=== PATIENT | female | born 1940 | race Caucasian/White ===

== ENCOUNTER 2019-12-08 10:45 | Inpatient (IN) | payer OTHER ==
[~2019-12-08] VITALS: Ht 154.9 cm; Wt 43.8 kg
[2019-12-08] MEDS ORDERED: ACETAMINOPHEN 500 MG TABLET PO ONE (11:30)
[2019-12-08 13:56] LABS: BASOPHILS % (AUTO) 0.5 % (0.0-2.0); EOSINOPHILS % (AUTO) 0.9 % (1.0-6.0); HEMATOCRIT 32.6 % (36-46); HEMOGLOBIN 10.5 g/dL (12.0-16.0); LYMPHOCYTES # (AUTO) 0.5 K/uL (1.0-4.8); MEAN CORPUSCULAR HEMOGLOBIN 29.8 pg (26.0-34.0); MEAN CORPUSCULAR HGB CONC 32.2 G/dL (31.0-37.0); MEAN CORPUSCULAR VOLUME 92 fL (80-100); MONOCYTES # (AUTO) 0.5 K/uL (0.1-1.0); MONOCYTES % (AUTO) 12.6 % (2.0-9.0); PLATELET COUNT (AUTO) 127 K/uL (150-450); RED BLOOD CELL COUNT(AUTO) 3.53 MIL/uL (4.00-5.20); RED CELL DISTRIBUTION WIDTH 17.6 % (11.5-14.5)
[2019-12-08 14:03] LABS: CALCIUM, TOTAL 7.5 mg/dL (8.8-10.5); CREATININE 5.48 mg/dL (0.60-1.30); POTASSIUM 5.6 mmol/L (3.5-5.1)
[2019-12-08 14:09] LABS: ALBUMIN 2.7 g/dL (3.4-5.0); BILIRUBIN,TOTAL 0.6 mg/dL (0.1-1.0); PHOSPHORUS 4.7 mg/dL (2.5-4.9)
[2019-12-08] MEDS ORDERED: ONDANSETRON HCL 4 MG/2 ML VIAL IVP PRN ×2 (14:15→15:00)
[2019-12-08] MEDS ORDERED: 0.9% SODIUM CHLORIDE 10 ML SYRINGE IVP PRN ×2 (14:15→15:00)
[2019-12-08] MEDS ORDERED: ACETAMINOPHEN 325 MG TABLET PO PRN ×2 (14:15→15:00)
[2019-12-08] MEDS ORDERED: DEXTROSE 50%-WATER 25 GM/50 ML SYRINGE IVP PRN (14:45)
[2019-12-08] MEDS ORDERED: BISACODYL 10 MG RECTAL RECTAL SUPPOSITORY PR PRN (15:00)
[2019-12-08] MEDS ORDERED: MAGNESIUM HYDROXIDE SUSPENSION 30 ML UDCUP PO PRN (15:00)
[2019-12-08] MEDS ORDERED: IPRATROPIUM BROMIDE 0.5 MG/2.5 ML NEB SOLUTION NEB PRN (15:00)
[2019-12-08] MEDS ORDERED: ALBUTEROL SULFATE 2.5 MG/0.5 ML NEB SOLUTION NEB PRN (15:00)
[2019-12-08] MEDS ORDERED: DOCUSATE SODIUM 100 MG CAPSULE PO PRN (15:00)
[2019-12-08] MEDS: PANTOPRAZOLE SODIUM 40 MG DR TABLET PO SCH (15:23)
[2019-12-08] MEDS: MORPHINE SULFATE 2 MG/ML SYRINGE IVP PRN ×2 (15:23→19:49)
[2019-12-08 18:24] VITALS: BP 124/56
[2019-12-08 20:00] VITALS: BP 108/56
[2019-12-08] MEDS: HEPARIN SODIUM,PORCINE 5,000 UNITS/ML VIAL SQ SCH (20:38)
[2019-12-09] VITALS (11 sets, daily range): BP systolic 135–209; BP diastolic 65–88
[2019-12-09] MEDS: INSULIN LISPRO 100 UNITS/ML SQ PRN ×3 (01:35→11:52)
[2019-12-09 01:38] LABS: GLUCOMETER DEV NAME(LOC) 6N.2; GLUCOSE,POINT OF CARE 197 MG/DL (70-110)
[2019-12-09 06:11] LABS: GLUCOMETER DEV NAME(LOC) 6S.1; GLUCOSE,POINT OF CARE 150 MG/DL (70-110)
[2019-12-09 07:29] LABS: BASOPHILS % (AUTO) 0.2 % (0.0-2.0); HEMATOCRIT 32.7 % (36-46); HEMOGLOBIN 10.6 g/dL (12.0-16.0); LYMPHOCYTES # (AUTO) 0.4 K/uL (1.0-4.8); LYMPHOCYTES % (AUTO) 12.2 % (22.0-44.0); MEAN CORPUSCULAR HEMOGLOBIN 30.1 pg (26.0-34.0); MEAN CORPUSCULAR HGB CONC 32.4 G/dL (31.0-37.0); MEAN CORPUSCULAR VOLUME 93 fL (80-100); MONOCYTES # (AUTO) 0.3 K/uL (0.1-1.0); MONOCYTES % (AUTO) 9.1 % (2.0-9.0); NEUTROPHILS # (AUTO) 2.5 K/uL (1.8-7.7); NEUTROPHILS % (AUTO) 77.5 % (40.0-70.0); PLATELET COUNT (AUTO) 135 K/uL (150-450); RED BLOOD CELL COUNT(AUTO) 3.52 MIL/uL (4.00-5.20); RED CELL DISTRIBUTION WIDTH 17.7 % (11.5-14.5)
[2019-12-09 07:46] LABS: ALBUMIN 2.6 g/dL (3.4-5.0); BILIRUBIN,TOTAL 0.6 mg/dL (0.1-1.0); CALCIUM, TOTAL 7.3 mg/dL (8.8-10.5); CREATININE 5.94 mg/dL (0.60-1.30); POTASSIUM 5.3 mmol/L (3.5-5.1); TOTAL PROTEIN, SERUM 6.8 g/dL (6.4-8.2)
[2019-12-09] MEDS: MORPHINE SULFATE 2 MG/ML SYRINGE IVP PRN ×3 (08:31→22:05)
[2019-12-09] MEDS: HEPARIN SODIUM,PORCINE 5,000 UNITS/ML VIAL SQ SCH ×2 (08:33→20:31)
[2019-12-09] MEDS: PANTOPRAZOLE SODIUM 40 MG DR TABLET PO SCH (08:33)
[2019-12-09] MEDS: TraMADol HCL 50 MG TABLET PO PRN (12:28)
[2019-12-09] MEDS: CALCITRIOL 0.25 MCG CAPSULE PO SCH (15:36)
[2019-12-09] MEDS: METOPROLOL TARTRATE 50 MG TABLET PO SCH ×2 (15:37→20:24)
[2019-12-09] MEDS ORDERED: NIFEdipine 30 MG ER TABLET PO SCH (17:45)
[2019-12-09] MEDS: CALCIUM ACETATE 667 MG CAPSULE PO SCH (18:08)
[2019-12-09] MEDS: NIFEdipine 90 MG ER TABLET PO SCH (18:08)
[2019-12-09 18:28] LABS: GLUCOMETER DEV NAME(LOC) 6N.2; GLUCOSE,POINT OF CARE 162 MG/DL (70-110)
[2019-12-09 18:29] LABS: GLUCOMETER DEV NAME(LOC) 6N.2; GLUCOSE,POINT OF CARE 131 MG/DL (70-110)
[2019-12-09] MEDS: HydrALAZINE HCL 20 MG/ML VIAL IVP PRN (20:24)
[2019-12-09 22:22] LABS: GLUCOMETER DEV NAME(LOC) 5S.1; GLUCOSE,POINT OF CARE 164 MG/DL (70-110)
[2019-12-10 04:25] VITALS: BP 154/68
[2019-12-10] MEDS: INSULIN LISPRO 100 UNITS/ML SQ PRN (06:20)
[2019-12-10 07:19] VITALS: BP 144/62
[2019-12-10 07:32] LABS: BASOPHILS % (AUTO) 0.3 % (0.0-2.0); EOSINOPHILS % (AUTO) 1.3 % (1.0-6.0); HEMATOCRIT 33.8 % (36-46); HEMOGLOBIN 10.7 g/dL (12.0-16.0); LYMPHOCYTES # (AUTO) 0.6 K/uL (1.0-4.8); MEAN CORPUSCULAR HEMOGLOBIN 29.4 pg (26.0-34.0); MEAN CORPUSCULAR HGB CONC 31.6 G/dL (31.0-37.0); MEAN CORPUSCULAR VOLUME 93 fL (80-100); MONOCYTES # (AUTO) 0.4 K/uL (0.1-1.0); MONOCYTES % (AUTO) 11.8 % (2.0-9.0); NEUTROPHILS # (AUTO) 2.2 K/uL (1.8-7.7); NEUTROPHILS % (AUTO) 68.6 % (40.0-70.0); PLATELET COUNT (AUTO) 150 K/uL (150-450); RED BLOOD CELL COUNT(AUTO) 3.63 MIL/uL (4.00-5.20); RED CELL DISTRIBUTION WIDTH 17.6 % (11.5-14.5)
[2019-12-10 07:36] LABS: CALCIUM, TOTAL 7.3 mg/dL (8.8-10.5); CREATININE 6.57 mg/dL (0.60-1.30)
[2019-12-10 07:39] LABS: POTASSIUM 6.3 mmol/L (3.5-5.1)
[2019-12-10] MEDS: CALCIUM ACETATE 667 MG CAPSULE PO SCH ×4 (08:00→18:12)
[2019-12-10] MEDS ORDERED: CALCIUM GLUCONATE 100 MG/ML 10 ML IVP ONE (08:00)
[2019-12-10] MEDS ORDERED: NIFEdipine 90 MG ER TABLET PO SCH (09:00)
[2019-12-10] MEDS: NIFEdipine 90 MG ER TABLET PO SCH (09:00)
[2019-12-10] MEDS: HEPARIN SODIUM,PORCINE 5,000 UNITS/ML VIAL SQ SCH ×2 (09:00→20:05)
[2019-12-10] MEDS ORDERED: EPOETIN ALFA 10,000 UNITS/ML 2 ML VIAL SQ SCH (09:00)
[2019-12-10] MEDS: METOPROLOL TARTRATE 50 MG TABLET PO SCH ×2 (09:00→21:00)
[2019-12-10] MEDS ORDERED: LISINOPRIL 20 MG TABLET PO SCH (09:00)
[2019-12-10] MEDS ORDERED: SODIUM CHLORIDE 0.9% 2,000 ML ONE (09:06)
[2019-12-10 11:39] VITALS: BP 109/61
[2019-12-10 11:46] LABS: GLUCOMETER DEV NAME(LOC) 5S.1; GLUCOSE,POINT OF CARE 153 MG/DL (70-110)
[2019-12-10 12:23] LABS: GLUCOMETER DEV NAME(LOC) 5S.1; GLUCOSE,POINT OF CARE 94 MG/DL (70-110)
[2019-12-10] MEDS: LOSARTAN POTASSIUM 50 MG TABLET PO SCH (12:45)
[2019-12-10 14:50] VITALS: BP 126/57
[2019-12-10] MEDS: PANTOPRAZOLE SODIUM 40 MG DR TABLET PO SCH (14:55)
[2019-12-10 15:52] VITALS: BP 115/55
[2019-12-10 18:48] LABS: GLUCOMETER DEV NAME(LOC) 5S.1; GLUCOSE,POINT OF CARE 145 MG/DL (70-110)
[2019-12-10 20:02] VITALS: BP 136/59
[2019-12-11] VITALS (8 sets, daily range): BP systolic 112–186; BP diastolic 60–77
[2019-12-11] MEDS: HydrALAZINE HCL 20 MG/ML VIAL IVP PRN (03:44)
[2019-12-11 06:43] LABS: GLUCOMETER DEV NAME(LOC) 5N.1; GLUCOSE,POINT OF CARE 188 MG/DL (70-110)
[2019-12-11 06:44] LABS: BASOPHILS % (AUTO) 0.5 % (0.0-2.0); EOSINOPHILS % (AUTO) 0.6 % (1.0-6.0); HEMATOCRIT 33.6 % (36-46); HEMOGLOBIN 10.9 g/dL (12.0-16.0); LYMPHOCYTES # (AUTO) 0.5 K/uL (1.0-4.8); LYMPHOCYTES % (AUTO) 11.2 % (22.0-44.0); MEAN CORPUSCULAR HEMOGLOBIN 29.9 pg (26.0-34.0); MEAN CORPUSCULAR HGB CONC 32.4 G/dL (31.0-37.0); MEAN CORPUSCULAR VOLUME 92 fL (80-100); MONOCYTES # (AUTO) 0.4 K/uL (0.1-1.0); MONOCYTES % (AUTO) 9.4 % (2.0-9.0); NEUTROPHILS # (AUTO) 3.3 K/uL (1.8-7.7); NEUTROPHILS % (AUTO) 78.3 % (40.0-70.0); PLATELET COUNT (AUTO) 154 K/uL (150-450); RED BLOOD CELL COUNT(AUTO) 3.64 MIL/uL (4.00-5.20); RED CELL DISTRIBUTION WIDTH 17.5 % (11.5-14.5)
[2019-12-11 07:00] LABS: CALCIUM, TOTAL 8.1 mg/dL (8.8-10.5); CREATININE 5.07 mg/dL (0.60-1.30); PHOSPHORUS 4.4 mg/dL (2.5-4.9); POTASSIUM 5.2 mmol/L (3.5-5.1)
[2019-12-11] MEDS ORDERED: SODIUM ZIRCONIUM CYCLOSILICATE 5 GM POWDER PACKET PO ONE (10:30)
[2019-12-11] MEDS: CALCIUM ACETATE 667 MG CAPSULE PO SCH ×3 (11:00→17:53)
[2019-12-11] MEDS: PANTOPRAZOLE SODIUM 40 MG DR TABLET PO SCH (11:01)
[2019-12-11] MEDS: METOPROLOL TARTRATE 50 MG TABLET PO SCH ×2 (11:04→21:00)
[2019-12-11] MEDS: HEPARIN SODIUM,PORCINE 5,000 UNITS/ML VIAL SQ SCH ×2 (11:05→22:02)
[2019-12-11] MEDS: NIFEdipine 90 MG ER TABLET PO SCH (11:13)
[2019-12-11] MEDS: LOSARTAN POTASSIUM 50 MG TABLET PO SCH (11:13)
[2019-12-11 12:12] LABS: GLUCOMETER DEV NAME(LOC) 5S.1; GLUCOSE,POINT OF CARE 155 MG/DL (70-110)
[2019-12-11] MEDS: INSULIN LISPRO 100 UNITS/ML SQ PRN ×2 (12:27→23:10)
[2019-12-11] MEDS: HydrALAZINE HCL 25 MG TABLET PO SCH ×2 (15:49→22:02)
[2019-12-11] MEDS ORDERED: MANNITOL 25%-12.5 GM/50 ML VIAL IVP ONE (16:59)
[2019-12-11 17:09] LABS: GLUCOMETER DEV NAME(LOC) 5N.1; GLUCOSE,POINT OF CARE 176 MG/DL (70-110)
[2019-12-11 20:24] LABS: GLUCOMETER DEV NAME(LOC) 5S.1; GLUCOSE,POINT OF CARE 114 MG/DL (70-110)
[2019-12-11] MEDS: TraMADol HCL 50 MG TABLET PO PRN (22:02)
[2019-12-12 00:01] VITALS: BP 115/58
[2019-12-12 00:34] LABS: GLUCOMETER DEV NAME(LOC) 5N.1; GLUCOSE,POINT OF CARE 152 MG/DL (70-110)
[2019-12-12 04:13] VITALS: BP 122/57
[2019-12-12 06:51] LABS: GLUCOMETER DEV NAME(LOC) 5N.1; GLUCOSE,POINT OF CARE 104 MG/DL (70-110)
[2019-12-12 07:15] VITALS: BP 127/61
[2019-12-12 08:07] LABS: CREATININE 5.89 mg/dL (0.60-1.30); POTASSIUM 5.2 mmol/L (3.5-5.1)
[2019-12-12 08:10] LABS: BASOPHILS % (AUTO) 0.6 % (0.0-2.0); HEMATOCRIT 29.3 % (36-46); HEMOGLOBIN 9.7 g/dL (12.0-16.0); LYMPHOCYTES # (AUTO) 0.6 K/uL (1.0-4.8); LYMPHOCYTES % (AUTO) 22.7 % (22.0-44.0); MEAN CORPUSCULAR HEMOGLOBIN 30.5 pg (26.0-34.0); MEAN CORPUSCULAR VOLUME 92 fL (80-100); MONOCYTES # (AUTO) 0.4 K/uL (0.1-1.0); NEUTROPHILS # (AUTO) 1.7 K/uL (1.8-7.7); NEUTROPHILS % (AUTO) 60.7 % (40.0-70.0); PLATELET COUNT (AUTO) 153 K/uL (150-450); RED BLOOD CELL COUNT(AUTO) 3.17 MIL/uL (4.00-5.20); RED CELL DISTRIBUTION WIDTH 17.7 % (11.5-14.5)
[2019-12-12] MEDS: LOSARTAN POTASSIUM 50 MG TABLET PO SCH (08:23)
[2019-12-12] MEDS: PANTOPRAZOLE SODIUM 40 MG DR TABLET PO SCH (08:23)
[2019-12-12] MEDS: CALCITRIOL 0.25 MCG CAPSULE PO SCH (08:23)
[2019-12-12] MEDS: HEPARIN SODIUM,PORCINE 5,000 UNITS/ML VIAL SQ SCH (08:24)
[2019-12-12] MEDS: HydrALAZINE HCL 20 MG/ML VIAL IVP PRN (08:24)
[2019-12-12] MEDS: METOPROLOL TARTRATE 50 MG TABLET PO SCH (08:24)
[2019-12-12] MEDS: NIFEdipine 90 MG ER TABLET PO SCH (08:24)
[2019-12-12] MEDS: CALCIUM ACETATE 667 MG CAPSULE PO SCH ×2 (08:24→12:16)
[2019-12-12] MEDS: HydrALAZINE HCL 25 MG TABLET PO SCH (08:29)
[2019-12-12 11:31] VITALS: BP 135/65
[2019-12-12] MEDS: INSULIN LISPRO 100 UNITS/ML SQ PRN (12:17)
[2019-12-12 12:47] LABS: GLUCOMETER DEV NAME(LOC) 6N.2; GLUCOSE,POINT OF CARE 162 MG/DL (70-110)
[2019-12-12] MEDS ORDERED: SODIUM ZIRCONIUM CYCLOSILICATE 5 GM POWDER PACKET PO ONE (13:00)
[2019-12-12 15:39] VITALS: BP 137/61
[2019-12-13] MEDS ORDERED: EPOETIN ALFA 10,000 UNITS/ML VIAL SQ SCH (09:00)
== END 2019-12-12 17:17 | DRG 342 ==
LOC: EMS 10:54 → 5S 15:32 → 6S 17:40 → 5S 12-09 18:30 → 6N 12-12 11:44
PROVIDERS: ADMIT Internal Medicine; ATTEND Internal Medicine
PROC: 5A1D70Z Performance of Urinary Filtration, Intermittent, Less than 6 Hours Per Day (ICD-10-PCS; principal; 2019-12-08)
DX: S52.502A Unspecified fracture of the lower end of left radius, initial encounter for closed fracture (principal); E43 Unspecified severe protein-calorie malnutrition; E11.22 Type 2 diabetes mellitus with diabetic chronic kidney disease; S32.592A Other specified fracture of left pubis, initial encounter for closed fracture; E87.5 Hyperkalemia; D64.9 Anemia, unspecified; S52.602A Unspecified fracture of lower end of left ulna, initial encounter for closed fracture; E11.319 Type 2 diabetes mellitus with unspecified diabetic retinopathy without macular edema; I12.0 Hypertensive chronic kidney disease with stage 5 chronic kidney disease or end stage renal disease; S52.92XA Unspecified fracture of left forearm, initial encounter for closed fracture; I16.0 Hypertensive urgency; N18.6 End stage renal disease; X58.XXXA Exposure to other specified factors, initial encounter; Z91.81 History of falling; Z99.2 Dependence on renal dialysis; Z90.49 Acquired absence of other specified parts of digestive tract; Y93.9 Activity, unspecified; Y92.89 Other specified places as the place of occurrence of the external cause; Y99.8 Other external cause status; Z90.710 Acquired absence of both cervix and uterus; Z68.1 Body mass index [BMI] 19.9 or less, adult
CPT/HCPCS: 73503; 83735; 84100; 87340; 97110; 97162; 97166; 97530; 97535; J0360; J0610; J0885; J1644; J2150; J2270; J7030